=== PATIENT | male | born 1970 ===

== ENCOUNTER 2021-12-04 08:00 | Outpatient (CLI) | payer BC ==
--- NOTE | 2021-12-04 14:24 | XRAY Report ---
PROCEDURE: Ribs w/PA Chest RT INDICATIONS: RIGHT CHEST WALL PAIN TECHNIQUE: 3 views of the right ribs were acquired, along with a single view chest. COMPARISON: None FINDINGS: Surgical changes and devices: None. Bones and chest wall: No fractures or dislocations. No suspicious bony lesions. Overlying soft tis sues appear unremarkable. Lungs and pleura: No pleural effusions or pneumothorax. Lungs appear clear. Mediastinum: Mediastinal contours appear normal. Heart size is normal. IMPRESSION: Normal chest x-ray Normal right rib radiographs. No fracture or pneumothorax. Reviewed by: Alexis Peterson MD on 12/04/2021 1:23 PM [email or web address] Approved by: Alexis Peterson MD on 12/04/2021 1:23 PM AKDT Station ID: [id number]
== END 2021-12-04 23:59 | disposition home or self-care (01) ==
LOC: DI.S 08:00
PROVIDERS: ATTEND Physician Assistant Medical
DX: R07.89 Other chest pain (principal)